=== PATIENT | female | born 1960 | race Caucasian/White ===

== ENCOUNTER 2019-02-19 16:50 | Outpatient (RCR) | payer BC, OTHER ==
[~2019-02-19 16:50] MED LIST: ADULT LOW DOSE81 MG; ANASPAZ0.125 MG; DIOVAN80 MG; ELMIRON100 MG; TOPROL XL50 MG
== END 2019-02-22 ==
LOC: PT 16:50
PROVIDERS: ATTEND Specialist
DX: S42.252D Displaced fracture of greater tuberosity of left humerus, subsequent encounter for fracture with routine healing (principal); M62.81 Muscle weakness (generalized); M25.512 Pain in left shoulder; M25.612 Stiffness of left shoulder, not elsewhere classified

== ENCOUNTER 2019-03-09 17:00 | Outpatient (RCR) | payer BC | END 2019-03-24 | LOC: PT 17:00 | PROVIDERS: ATTEND Specialist | DX: S42.252D Displaced fracture of greater tuberosity of left humerus, subsequent encounter for fracture with routine healing (principal); M62.81 Muscle weakness (generalized); M25.512 Pain in left shoulder; M25.612 Stiffness of left shoulder, not elsewhere classified | CPT/HCPCS: 97139 ==